=== PATIENT | female | born 1970 | race African-American/Black ===

== ENCOUNTER 2019-01-10 07:55 | Observation (INO) | payer BC ==
[2019-01-10 08:33] LABS: #Basophils 0.1 thou/uL (0.0-0.2); #Lymphocytes 2.5 thou/uL (1.20-3.40); #Monocytes 0.6 thou/uL (0.11-0.59); %Basophils 0.7 % (0.0-1.0); %Eosinophils 0.4 % (0.0-10.0); %Lymphocytes 22.4 % (21.0-51.0); %Monocytes 5.4 % (0.0-10.0); %Neutrophils 71.1 % (42.0-75.0); Hemoglobin 14.1 g/dL (12.0-16.0); Mean Corpuscular Hemoglobin 31.8 pg (27.0-31.0); Mean Corpuscular Volume 96.5 fL (78.0-98.0); Mean Platelet Volume 6.6 fL (7.4-10.4); Platelet Count 399 thou/uL (130-400); RBC Distribution Width 11.6 % (11.5-14.5); Red Blood Cell (RBC) Count 4.44 mill/uL (4.20-5.40); White Blood Cell (WBC) Count 11.2 thou/uL (4.8-10.8)
--- NOTE | 2019-01-10 08:33 | RAD ---
PORTABLE CHEST 1 VIEW: Date: 01/10/19 Time: 0803 hours HISTORY: Dizzy spells, headache, chest pain. FINDINGS: The heart size is normal. The lungs are expanded without focal areas of consolidation, pneumothoraces , or pleural effusions. There are postop changes and metallic hardware in the right humerus. IMPRESSION: No acute process. POS: FLOH
[2019-01-10 08:47] LABS: ALT (SGPT) 12 U/L (8-55); AST (SGOT) 11 U/L (5-34); Albumin 4.3 g/dL (3.5-5.0); Alkaline Phosphatase 66 U/L (40-110); Anion Gap 12 mmol/L (10-20); BUN (Urea Nitrogen) 14 mg/dL (7.0-18.7); Bilirubin, Total 0.2 mg/dL (0.2-1.2); CK (CPK) 57 U/L (29-168); Calc. Creatinine Clearance 0 mL/min (70-130); Calcium 9.1 mg/dL (7.8-10.44); Carbon Dioxide 24 mmol/L (22-29); Chloride 105 mmol/L (98-107); Estimated GFR-MDRD Greater than 90; Globulin 3.4 g/dL (2.4-3.5); Glucose 95 mg/dL (70-105); Lipase 39 U/L (8-78); Potassium 3.8 mmol/L (3.5-5.1); Protein, Total 7.7 g/dL (6.0-8.3); Sodium 137 mmol/L (136-145)
[2019-01-10] MEDS ORDERED: Aspirin Chewable 81 MG TAB ONE (09:07)
[2019-01-10] MEDS ORDERED: Nitroglycerin 2% Ointment 1 INCH/1 GM Packet ONE (09:07)
[2019-01-10] MEDS ORDERED: Acetaminophen/Codeine 30-300mg Tablet PO PRN (11:27)
[2019-01-10] MEDS ORDERED: Acetaminophen 325 MG TAB PO PRN (11:28)
[2019-01-10] MEDS ORDERED: Ondansetron PF 4 MG/2 ML Vial IVP PRN (11:28)
[2019-01-10] MEDS ORDERED: Ondansetron ODT 4 MG TAB PO PRN (11:28)
[2019-01-10 12:18] LABS: Troponin I Less than 0.010 ng/mL (< 0.028)
[2019-01-10 12:47] VITALS: BMI 28.1
[2019-01-10] MEDS: Nitroglycerin 2% Ointment 1 INCH/1 GM Packet TOP SCH ×2 (13:18→19:17)
--- NOTE | 2019-01-10 16:02 | HP ---
PRIMARY CARE PHYSICIAN: Valdez Gibson MD CHIEF COMPLAINT: Chest pain. HISTORY OF PRESENT ILLNESS: Ms. Valdez is a 48-year-old female with a past medical history of hypertension and asthma, who had presented to the ED earlier today due to symptoms of chest pain that has been ongoing on and off over the last 2 days. She also reports some nausea, vomiting, and diarrhea that started around that time as well. She states that she is supposed to take medication for her blood pressure at home; however, she has ran out and has not taken that for about a month now. She states that she was trying to get into her PCP, but was not able to make an appointment. She stated that the chest pain is in the substernal area and is worse with movement. She states that the nitroglycerin that she had received in the ED had helped with her pain. Her serial troponins were found to be negative x2. Portable chest x-ray was found to be unremarkable. She otherwise denied any fever, chills, headache, blurred vision, or dizziness; any palpitations, shortness of breath, or abdominal pain. REVIEW OF SYSTEMS: All other systems were reviewed and found to be negative unless mentioned in the HPI. PAST MEDICAL HISTORY: Hypertension and asthma. PAST SURGICAL HISTORY: Right hip replacement, right arm and hand surgery, section x2. PSYCHIATRIC HISTORY: Anxiety and depression. SOCIAL HISTORY: The patient denies alcohol, tobacco, or illicit drug use. KNOWN ALLERGIES: No known drug allergies. CURRENT HOME MEDICATIONS: 1. Acetaminophen with codeine 2 tabs oral every 6 hours as needed for pain. 2. Amitriptyline 30 mg at bedtime. 3. Amlodipine 5 mg daily. 4. Hydrochlorothiazide 25 mg daily. 5. Potassium chloride 10 mEq daily. PHYSICAL EXAMINATION: VITAL SIGNS: BP 142/91, pulse 73, respirations 20, temperature 98.2, O2 saturation 99% on room air. GENERAL: The patient is awake, alert, and oriented x3. She is currently lying comfortably in bed and in no acute distress. HEENT: Atraumatic and normocephalic. Pupils are round and reactive to light. Extraocular muscles intact. Moist mucous membranes noted. NECK: Soft and supple. Trachea midline. CARDIOVASCULAR: Positive S1 and S2. Regular rate and rhythm. No murmur auscultated. RESPIRATORY: Clear to auscultation bilaterally. No wheezes, rales, or rhonchi. ABDOMEN: Soft, nontender. Bowel sounds present. EXTREMITIES: Moves all extremities equal. Pedal and radial pulses 2+ bilaterally. No edema noted. NEUROLOGIC: Cranial nerves 2 through 12 are grossly intact. No focal deficits noted. Speech intact. Normal gait not assessed. SKIN: Warm, dry, and intact. No rashes. No ulceration noted. PSYCHIATRIC: Good mood and affect. LABORATORY DATA: WBC 11.2, RBC 4.44, hemoglobin 14.1, hematocrit 42.8, platelet 399. Sodium 137, potassium 3.8, anion gap 12, BUN 14, creatinine 0.75, estimated GFR greater than 90, glucose 95, troponin less than 0.010 x2. Lipase 39. DIAGNOSTIC IMAGING: Portable chest x-ray showed no acute process. ASSESSMENT AND PLAN: 1. Chest pain, the patient will undergo cardiac stress test during hospital course for further acute coronary syndrome rule out. She will remain on telemetry for further monitoring for any sort of arrhythmia. She will be restarted on her home regimen for blood pressure and other home medications. Her serial troponins were found to be negative x2. 2. History of hypertension. The patient has not taken her home medications in over a month, these will be restarted, and blood pressure and other vital signs will be monitored closely. 3. Possible gastroenteritis, likely viral; however, we will check the stool culture if she still continues to have diarrhea. 4. History of asthma, currently stable at this time. We will monitor closely. 5. Deep venous thrombosis and gastrointestinal prophylaxis. 6. Code status, full code. DISPOSITION: Pending further workup and clinical findings. Job ID: [id number]
--- NOTE | 2019-01-10 16:08 | NM ---
EXAM: CARDIAC SPECT HISTORY: Chest pain TECHNIQUE: A myocardial perfusion scan was performed using the single isotope 1 day protocol with ericka hnetium 99m sestamibi. [10 mCi] was injected intravenously for the rest exam followed by 30 mCi for the stress study. Pharmacologic stress with Lexiscan was monitored and interpreted by Daryl Jacome, Nurse practitioner FINDINGS: Homogeneous tracer distribution is seen in the myocardial segments on stress and rest image s without fixed or reversible defects. Gated SPECT LVEF: 70% Wall motion exam: Normal IMPRESSION: Normal myocardial perfusion scan
[2019-01-10 16:25] LABS: Troponin I Less than 0.010 ng/mL (< 0.028)
[2019-01-10] MEDS: Famotidine 20 MG TAB PO SCH (19:21)
[2019-01-10] MEDS ORDERED: Regadenoson 0.4 MG/5 ML SYRINGE ONE (19:50)
[2019-01-10] MEDS ORDERED: Amitriptyline HCl 10 MG TAB PO SCH (21:00)
[2019-01-11 05:18] LABS: #Basophils 0.1 thou/uL (0.0-0.2); #Eosinphils 0.1 thou/uL (0.0-0.7); #Lymphocytes 3.2 thou/uL (1.20-3.40); #Monocytes 0.7 thou/uL (0.11-0.59); #Neutrophils 7.9 thou/uL (1.40-6.50); %Eosinophils 0.7 % (0.0-10.0); %Lymphocytes 26.9 % (21.0-51.0); %Monocytes 5.4 % (0.0-10.0); %Neutrophils 65.9 % (42.0-75.0); Hemoglobin 13.8 g/dL (12.0-16.0); Mean Corpuscular HGB CONC 32.9 g/dL (32.0-36.0); Mean Corpuscular Hemoglobin 31.8 pg (27.0-31.0); Mean Corpuscular Volume 96.8 fL (78.0-98.0); Mean Platelet Volume 6.4 fL (7.4-10.4); Platelet Count 381 thou/uL (130-400); RBC Distribution Width 11.6 % (11.5-14.5); Red Blood Cell (RBC) Count 4.34 mill/uL (4.20-5.40); White Blood Cell (WBC) Count 11.9 thou/uL (4.8-10.8)
[2019-01-11 05:41] LABS: Anion Gap 10 mmol/L (10-20); BUN (Urea Nitrogen) 17 mg/dL (7.0-18.7); Calc. Creatinine Clearance 85 mL/min (70-130); Calcium 9.1 mg/dL (7.8-10.44); Carbon Dioxide 28 mmol/L (22-29); Cardiac Risk 3.3 (Less than 4.5); Chloride 104 mmol/L (98-107); Cholesterol 186 mg/dl (< 200 Desired); Estimated GFR-MDRD Greater than 90; Glucose 107 mg/dL (70-105); HDL Cholesterol 56 mg/dL (>60 Neg Risk); LDL Cholesterol, Calculated 115 mg/dL; Potassium 4.5 mmol/L (3.5-5.1); Sodium 137 mmol/L (136-145); Triglycerides 76 mg/dL (Less than 150)
[2019-01-11 07:51] VITALS: BP 136/83; TEMP 97.8
[2019-01-11] MEDS ORDERED: Potassium Chloride 10 MEQ TAB PO SCH (08:00)
[2019-01-11] MEDS ORDERED: FLU VACC QS2019-20(6MOS UP)/PF 60 MCG/0.5 ML SYRINGE IM ONE (09:00)
[2019-01-11] MEDS ORDERED: Hydrochlorothiazide 25 MG TAB PO SCH (09:00)
[2019-01-11] MEDS ORDERED: Amlodipine 5 MG TAB PO SCH (09:00)
[2019-01-11] MEDS ORDERED: Enoxaparin Sodium 40 MG/0.4 ML SYRINGE SC SCH (09:00)
[2019-01-11] MEDS ORDERED: Aspirin 81 mg Enteric Coated Tablet PO SCH (09:00)
[2019-01-11] MEDS: Famotidine 20 MG TAB PO SCH (09:23)
--- NOTE | 2019-01-11 23:45 | STRESS ---
Acquisition Time: 2019-01-10 14:20:36 Total Exercise Time: 00:01:00 Test Indications: CHEST PAIN Medications: Protocol: LEXISCAN Max HR: 127 BPM 74% of Pred: 170 BPM Max BP: */* mmHG Max Work Load: 1.0 METS RESTING ECG: NORMAL SINUS RHYTHM AT 75 BPM WITH NON-SPECIFIC T-WAVE CHANGES SYMPTOMS: NONE NORMAL BP RESPONSE ECTOPY: NONE ECG STRESS: NO SIGNIFICANT CHANGES INTERPRETATION: INDETERMINATE ECG/AWAIT NUCLEAR IMAGES FOR DEFINITIVE DIAGNOSIS Confirmed by ANITA BA M.D. ([id number] on 01/11/2019 11:44:16 PM Referred By: MIKA ROLDAN Confirmed By:ANITA BA M.D.
--- NOTE | 2019-01-12 05:14 | DIS ---
DATE OF ADMISSION: 01/10/2019 DATE OF DISCHARGE: 01/11/2019 DISCHARGE DIAGNOSES: 1. Viral gastroenteritis. 2. Gastroesophageal reflux disease. 3. Hypertension. 4. Asthma. CONSULTATIONS: None. PROCEDURES: Cardiolite stress test reveals a left ventricular ejection fraction of 70% without fixed or reversible defects with normal wall motion, which determined to be a normal myocardial perfusion scan. LABORATORY DATA: WBC 11.9, RBC 4.34, hemoglobin 13.8, hematocrit 42.0, platelet 381. Sodium 137, potassium 4.5, anion gap 10, BUN 17, creatinine 0.79, estimated GFR greater than 90, glucose 107. Troponin less than 0.010 x3. Triglycerides 76, cholesterol 186, LDL 115, HDL 56, lipase 39. DIAGNOSTIC IMAGING: Portable chest x-ray showed no acute process. HOSPITAL COURSE: Ms. Valdez is a 48-year-old female, who had presented to the ED on 01/10/2019 with chest pain. She had also been having nausea, vomiting, and diarrhea for 2 days prior and had heartburn after meals. The ED staff performed a portable chest x-ray and was found to be normal. Her serial troponins were found to be negative x3. She was brought in under observation for chest pain rule out. Stool culture was ordered due to the patient's recent history of acute multiple loose stools. However, the patient has not had a loose stool throughout the hospital course, therefore, this was discontinued. The chance of her having C diff was quite low. She underwent a cardiac stress test, which was also found to be normal and had ruled out any signs of ischemia at this time. She was seen and examined prior to discharge. She had no further symptoms of chest pain, palpitations, shortness of breath, abdominal pain, nausea, vomiting, or diarrhea. Therefore, she was deemed medically stable for discharge home. She was recommended to stay on a PPI upon discharge and follow up with her PCP in 1 week, she had verbalized her understanding for this discharge plan. DISCHARGE MEDICATIONS: 1. Aspirin 81 mg daily. 2. Acetaminophen with codeine 2 tablets p.o. q.6 hours as needed for pain. 3. Amitriptyline 30 mg p.o. at bedtime. 4. Amlodipine 5 mg oral daily. 5. Hydrochlorothiazide 25 mg oral daily. 6. Potassium chloride 10 mEq oral daily. FOLLOWUP: The patient was instructed to follow up with her PCP, Dr. Gibson in 1 to 2 weeks. CONDITION ON DISCHARGE: Stable. ACTIVITY: As tolerated. DIET: Regular. DISPOSITION: Home on 01/11/2019. Job ID: [id number]
--- NOTE | 2019-01-13 13:55 | EKG ---
Test Reason : Blood Pressure : / mmHG Vent. Rate : 075 BPM Atrial Rate : 075 BPM P-R Int : 134 ms QRS Dur : 068 ms QT Int : 384 ms P-R-T Axes : 033 -11 024 degrees QTc Int : 428 ms Normal sinus rhythm Moderate voltage criteria for LVH, may be normal variant Borderline ECG Confirmed by JUMA CLAIRE, SIMON Miranda ([id number]), design editor GINA GALINDO ([id number]) on 01/13/2019 1:54:53 PM Referred By: Confirmed By:SIMON DENNISON MD
== END 2019-01-11 10:10 | disposition home or self-care (01) ==
LOC: ERS 07:55 → 2SW 09:31
PROVIDERS: ADMIT Internal Medicine; ATTEND Internal Medicine
DX: A08.4 Viral intestinal infection, unspecified (principal); I10 Essential (primary) hypertension; J45.909 Unspecified asthma, uncomplicated; F41.9 Anxiety disorder, unspecified; F32.9 Major depressive disorder, single episode, unspecified; K21.9 Gastro-esophageal reflux disease without esophagitis; Z79.899 Other long term (current) drug therapy
CPT/HCPCS: 36415; 71045; 78452; 80048; 80053; 80061; 82550; 83690; 83735; 84484; 85025; 93005; 93017; 94760; A9500; G0378; J2785

== ENCOUNTER 2019-09-10 19:21 | Emergency (ER) | payer BC, OTHER | END 2019-09-10 20:45 | disposition home or self-care (01) | LOC: ERS 19:21 | DX: R19.7 Diarrhea, unspecified (principal); R05 Cough; R09.81 Nasal congestion; Z20.828 Contact with and (suspected) exposure to other viral communicable diseases; I10 Essential (primary) hypertension; J45.909 Unspecified asthma, uncomplicated; F41.9 Anxiety disorder, unspecified | CPT/HCPCS: 87635; 99284; U0003 ==

== ENCOUNTER 2023-01-20 13:35 | Outpatient (CLI) | payer OTHER | END 2023-01-20 13:36 | disposition home or self-care (01) | LOC: BICRAD 13:35 | PROVIDERS: ATTEND Preventive Medicine Occupational Medicine | DX: Z02.71 Encounter for disability determination (principal); M06.041 Rheumatoid arthritis without rheumatoid factor, right hand; M06.051 Rheumatoid arthritis without rheumatoid factor, right hip; M16.11 Unilateral primary osteoarthritis, right hip ==